=== PATIENT | male | born 1970 | race Caucasian/White ===

== ENCOUNTER 2020-10-01 14:42 | Emergency (ER) | payer OTHER ==
[~2020-10-01] VITALS: Ht 180.3 cm; Wt 100.0 kg
[2020-10-01] MEDS ORDERED: AMOXICILLIN500 MG PO (16:12)
[2020-10-01] MEDS ORDERED: LORTAB 1010 MG PO (16:12)
[2020-10-01 16:35] VITALS: BP 124/79
== END 2020-10-01 16:45 | disposition home or self-care (01) | DRG 605 ==
LOC: ED 14:42
PROC: 0HQLXZZ Repair Left Lower Leg Skin, External Approach (ICD-10-PCS; principal; 2020-10-01)
PROC: 0HQ1XZZ Repair Face Skin, External Approach (ICD-10-PCS; 2020-10-01)
PROC: 0HQ0XZZ Repair Scalp Skin, External Approach (ICD-10-PCS; 2020-10-01)
DX: S01.01XA Laceration without foreign body of scalp, initial encounter (principal); S00.83XA Contusion of other part of head, initial encounter; S00.81XA Abrasion of other part of head, initial encounter; S81.812A Laceration without foreign body, left lower leg, initial encounter; W55.12XA Struck by horse, initial encounter; Y93.89 Activity, other specified; Y92.39 Other specified sports and athletic area as the place of occurrence of the external cause